=== PATIENT | male | born 1945 ===

== ENCOUNTER 2022-01-03 05:00 | Inpatient (IN) ==
[2022-01-03] MEDS ORDERED: SODIUM CHLORIDE 0.9% 500 ML IV STA (05:15)
[2022-01-03] MEDS ORDERED: KETOROLAC 30 MG/1 ML VIAL IV STA (05:15)
[2022-01-03] MEDS ORDERED: PANTOPRAZOLE 40 MG VIAL IV STA (05:15)
[2022-01-03] MEDS ORDERED: ONDANSETRON 4 MG/2 ML VIAL IV STA (05:15)
[2022-01-03] MEDS ORDERED: ALUM/MAG/SIMETH/LIDO VISC 1:1 30 ML BOTTLE PO STA (05:15)
[2022-01-03 05:40] LABS: Basophils % 0.3 % (0.0-0.8); Eosinophils % 0.4 % (0.00-10.9); Hematocrit 35.4 VOL% (42.0-52.0); Hemoglobin 11.1 GM/DL (14.0-18.0); Immature Granulocytes % 0.8 %; Immature Granulocytes Absolute 0.07 #; Lymphocytes # 0.8 10*3/uL (1.4-4.0); Lymphocytes % 8.6 % (21.2-54.2); Mean Corpuscular HGB Conc 31.4 GM/DL (32-36); Mean Corpuscular Volume 83.9 FL (87-102); Mean Platelet Volume 10.2 FL (9.6-12.0); Monocytes # 1.3 10*3/uL (0.11-0.8); Monocytes % 14.5 % (1.7-12.7); Neutrophils % 75.4 % (38.7-73.9); Platelet Count 329 T/CUMM (130-400); Red Blood Count 4.22 MC/CUMM (3.8-5.5); Red Cell Distribution Width 15.9 % (9.3-17.3); White Blood Count 9.2 T/CUMM (4-12)
[2022-01-03] MEDS ORDERED: DILTIAZEM 25 MG/5 ML VIAL IV ONE (05:43)
[2022-01-03] MEDS ORDERED: ASPIRIN 325 MG TABLET ONE (05:43)
[2022-01-03] MEDS ORDERED: ASPIRIN EC 325 MG TABLET PO STA (05:50)
[2022-01-03] MEDS ORDERED: DILTIAZEM 25 MG/5 ML VIAL IV STA ×2 (05:52→06:09)
[2022-01-03 06:00] LABS: Albumin 3.2 G/DL (3.4-5.0); Bilirubin,Total 0.9 MG/DL (0.20-1.00); Calcium 8.9 MG/DL (8.5-10.1); Osmolality,Calculated 278.8 MOS/KG (273-304); Potassium 3.8 MMOL/L (3.5-5.1); Total Protein 6.9 G/DL (6.4-8.2)
[2022-01-03 07:40] LABS: Bacteria,Urine Occasional /HPF (Few); Mucus,Urine Occasional /LPF (Occasional); RBC,Urine 1 /HPF (0-4); Squamous Epithelial Cell,Urine Occasional /HPF (0-10)
[2022-01-03 07:41] LABS: Bilirubin,Urine Negative (Negative); Glucose,Urine (UA) Negative (Negative); Ketones,Urine 15 mg/dL (Negative); Nitrite,Urine Negative (Negative); Protein,Urine Trace mg/dL (Negative); Urine Appearance Clear (Clear); Urine Color Yellow (Yellow); Urine Specific Gravity 1.015 (1.001-1.035)
[2022-01-03 07:42] LABS: Blood, Urine Trace mg/dL (Negative); Urine Urobilinogen 0.2 eU/dL (<2.0)
[2022-01-03] MEDS ORDERED: SIMETHICONE CHEW 125 MG TABLET PO PRN (09:14)
[2022-01-03] MEDS ORDERED: ONDANSETRON 4 MG/2 ML VIAL IV PRN (09:14)
[2022-01-03 09:47] LABS: Risk Ratio 2.83; Thyroid Stimulating Hormone 1.57 uIU/ml (0.358-3.74); VLDL Cholesterol 15.6 MG/DL
[2022-01-03] MEDS: LACTATED RINGERS 1,000 ML IV SCH ×3 (09:55→21:25)
[2022-01-03] MEDS: ENOXAPARIN 40 MG/0.4 ML SYRINGE SUBCUT SCH (10:10)
[2022-01-03] MEDS: HYDROmorphone 1 MG/1 ML SYRINGE IV PRN (14:22)
[2022-01-03] MEDS: LACTULOSE 20 GM/30 ML UDCUP PO SCH ×2 (16:00→21:22)
[2022-01-03] MEDS ORDERED: METOPROLOL TARTRATE 25 MG TABLET PO ONE (17:18)
[2022-01-03] MEDS: METOPROLOL TARTRATE 25 MG TABLET PO SCH (21:22)
[2022-01-03] MEDS: PANTOPRAZOLE 40 MG VIAL IV SCH (21:22)
[2022-01-04] MEDS: IBUPROFEN 400 MG TABLET PO PRN ×2 (03:43→21:00)
[2022-01-04 06:26] LABS: Basophils % 0.2 % (0.0-0.8); Eosinophils % 0.2 % (0.00-10.9); Hematocrit 28.9 VOL% (42.0-52.0); Hemoglobin 9.1 GM/DL (14.0-18.0); Immature Granulocytes % 0.5 %; Immature Granulocytes Absolute 0.05 #; Lymphocytes # 0.6 10*3/uL (1.4-4.0); Mean Corpuscular HGB Conc 31.5 GM/DL (32-36); Mean Corpuscular Volume 84.3 FL (87-102); Mean Platelet Volume 10.5 FL (9.6-12.0); Monocytes # 1.1 10*3/uL (0.11-0.8); Monocytes % 12.2 % (1.7-12.7); Neutrophils % 80.9 % (38.7-73.9); Platelet Count 224 T/CUMM (130-400); Red Blood Count 3.43 MC/CUMM (3.8-5.5); Red Cell Distribution Width 15.8 % (9.3-17.3); White Blood Count 9.3 T/CUMM (4-12)
[2022-01-04 06:48] LABS: Albumin 2.4 G/DL (3.4-5.0); Bilirubin,Total 0.8 MG/DL (0.20-1.00); Calcium 8.6 MG/DL (8.5-10.1); Osmolality,Calculated 276.8 MOS/KG (273-304); Potassium 3.9 MMOL/L (3.5-5.1); Total Protein 6.4 G/DL (6.4-8.2)
[2022-01-04] MEDS: LACTATED RINGERS 1,000 ML IV SCH (07:29)
[2022-01-04] MEDS: METOPROLOL TARTRATE 25 MG TABLET PO SCH ×2 (08:29→21:00)
[2022-01-04] MEDS: hydroCHLOROthiazide 25 MG TABLET PO SCH (08:29)
[2022-01-04] MEDS: LACTULOSE 20 GM/30 ML UDCUP PO SCH ×3 (08:43→20:59)
[2022-01-04] MEDS: ENOXAPARIN 40 MG/0.4 ML SYRINGE SUBCUT SCH ×2 (08:44→09:09)
[2022-01-04] MEDS: PANTOPRAZOLE 40 MG VIAL IV SCH ×2 (08:44→21:00)
[2022-01-04] MEDS: PIPERACILLIN/TAZOBACTAM 3,375 MG in SODIUM CHLORIDE 0.9% 100 ML IV SCH ×2 (10:04→17:49)
[2022-01-04] MEDS ORDERED: GRANISETRON 1 MG/1 ML VIAL IV SCH (15:00)
[2022-01-04] MEDS ORDERED: DEXAMETHASONE INJ 10 MG in SODIUM CHLORIDE 0.9% 50 ML IV ONE (15:00)
[2022-01-04] MEDS: HYDROmorphone 1 MG/1 ML SYRINGE IV PRN (15:05)
[2022-01-04] MEDS ORDERED: CARBOplatin 400 MG in SODIUM CHLORIDE 0.9% 250 ML IV ONE (15:30)
[2022-01-04] MEDS ORDERED: ETOPOSIDE 150 MG in SODIUM CHLORIDE 0.9% 500 ML IV ONE (15:30)
[2022-01-05] MEDS: LACTATED RINGERS 1,000 ML IV SCH ×2 (00:04→13:40)
[2022-01-05] MEDS: PIPERACILLIN/TAZOBACTAM 3,375 MG in SODIUM CHLORIDE 0.9% 100 ML IV SCH ×2 (01:24→09:27)
[2022-01-05 06:23] LABS: Basophils % 0.1 % (0.0-0.8); Hematocrit 34.8 VOL% (42.0-52.0); Hemoglobin 10.3 GM/DL (14.0-18.0); Immature Granulocytes % 0.6 %; Immature Granulocytes Absolute 0.05 #; Lymphocytes # 0.2 10*3/uL (1.4-4.0); Lymphocytes % 2.9 % (21.2-54.2); Mean Corpuscular HGB Conc 29.6 GM/DL (32-36); Mean Corpuscular Volume 88.3 FL (87-102); Mean Platelet Volume 10.5 FL (9.6-12.0); Monocytes # 0.6 10*3/uL (0.11-0.8); Monocytes % 6.6 % (1.7-12.7); Neutrophils % 89.8 % (38.7-73.9); Platelet Count 233 T/CUMM (130-400); Red Blood Count 3.94 MC/CUMM (3.8-5.5); Red Cell Distribution Width 16.3 % (9.3-17.3); White Blood Count 8.3 T/CUMM (4-12)
[2022-01-05 06:34] LABS: Band Neutrophils 7 % (0-10); Lymphocytes 5 % (20-55); Metamyelocytes 1 %; Platelet Estimate Normal; Total Cells Counted 100
[2022-01-05 06:43] LABS: Bilirubin,Total 0.7 MG/DL (0.20-1.00); Calcium 8.1 MG/DL (8.5-10.1); Osmolality,Calculated 281.7 MOS/KG (273-304); Total Protein 6.1 G/DL (6.4-8.2)
[2022-01-05] MEDS: LACTULOSE 20 GM/30 ML UDCUP PO SCH ×2 (09:15→15:10)
[2022-01-05] MEDS: METOPROLOL TARTRATE 25 MG TABLET PO SCH (09:16)
[2022-01-05] MEDS: hydroCHLOROthiazide 25 MG TABLET PO SCH (09:17)
[2022-01-05] MEDS: PANTOPRAZOLE 40 MG VIAL IV SCH (09:18)
[2022-01-05] MEDS: ENOXAPARIN 40 MG/0.4 ML SYRINGE SUBCUT SCH (09:27)
[2022-01-05 16:14] VITALS: BP 113/77
== END 2022-01-05 16:10 | disposition home or self-care (01) | DRG 439 ==
LOC: EDBD → EDUNIT# → N.ED 05:00 → N.EDINP 09:02 → SUATTDRO 09:02 → N.3E 10:19 → N.TELES 01-04 13:23
PROVIDERS: ADMIT Hospitalist; ATTEND Family Medicine